=== PATIENT | male | born 1980 | race Caucasian/White ===

== ENCOUNTER 2017-07-24 12:18 | Emergency (ER) | payer MEDICAID ==
[2017-07-24 12:42] VITALS: BP 107/70; PULSE 88; RESP 18; TEMP 98; O2SAT 97
--- NOTE | 2017-07-24 12:59 | C.PDOC ---
History Of Present Illness 37 year old male presents to the ED for evaluation of a callus to his right heel which has been intermittently painful over the past 6 years. Patient states the area recently became painful over the past 2 days and asks for the area to be checked and cleaned. He denies fever, chills, recent trauma/injury to the site. Time Seen by Provider: 07/24/17 12:48 Chief Complaint (Nursing): Lower Extremity Problem/Injury History Per: Patient History/Exam Limitations: no limitations Onset/Duration Of Symptoms: Days (2), Intermittent Episodes (6 years ) Current Symptoms Are (Timing): Still Present Additional History Per: Patient - Ankle/Foot Description Of Injury: denies: Fell, Struck With Object, Struck Against Object, Twisted Past Medical History Reviewed: Historical Data, Nursing Documentation, Vital Signs Vital Signs: Last Vital Signs Temp 98 F 07/24/17 12:37 Pulse 88 07/24/17 12:37 Resp 18 07/24/17 12:37 BP 107/70 07/24/17 12:37 Pulse Ox 97 07/24/17 13:33 - Medical History PMH: No Chronic Diseases Surgical History: No Surg Hx Family History: States: Unknown Family Hx - Social History Hx Alcohol Use: No Hx Substance Use: No - Immunization History Hx Tetanus Toxoid Vaccination: No Hx Influenza Vaccination: No Hx Pneumococcal Vaccination: No Review Of Systems Constitutional: Negative for: Fever, Chills Skin: Positive for: Other (painful callus to right heel ) Physical Exam - Physical Exam Appears: Non-toxic, No Acute Distress Skin: Normal Color, Warm, Dry Extremity: Normal ROM, No Tenderness, Capillary Refill (less than 2 seconds ), No Deformity, No Swelling, Other (3x2cm callus to right heel. no erythema ) Neurological/Psych: Oriented x3, Normal Speech, Normal Cognition Gait: Steady ED Course And Treatment O2 Sat by Pulse Oximetry: 97 (on RA) Pulse Ox Interpretation: Normal Medical Decision Making Medical Decision Making: Patient is resting comfortably, showing no signs of distress and is stable for discharge. Patient is advised to follow up with watch and clock repair clerk within 1-2 days for further evaluation and/or return to the ED if symptoms worsen. Disposition Counseled Patient/Family Regarding: Diagnosis, Need For Followup - Disposition Referrals: [facility] [Outside] Podiatry Clinic [Outside] Disposition: HOME/ ROUTINE Disposition Time: 12:58 Condition: GOOD Additional Instructions: Please follow up in Podiatry clinic for further care of foot You can call ahead to make appointment Instructions: Corns and Calluses Forms: [employer] (Greenlandic) - POA Present On Arrival: None - Clinical Impression Clinical Impression: Callus of foot - PA / DIRECTOR ADVANCED / Resident Statement MD/DO has reviewed & agrees with the documentation as recorded. - Scribe Statement The provider has reviewed the documentation as recorded by the Scribe (Mariama Culver) All medical record entries made by the Scribe were at my direction and personally dictated by me. I have reviewed the chart and agree that the record accurately reflects my personal performance of the history, physical exam, medical decision making, and the department course for this patient. I have also personally directed, reviewed, and agree with the discharge instructions and disposition.
== END 2017-07-24 13:06 | disposition home or self-care (01) ==
LOC: C.ER 12:18
DX: L84 Corns and callosities (principal)